=== PATIENT | male | born 1985 | race Caucasian/White ===

== ENCOUNTER 2021-08-27 12:20 | Emergency (ER) | payer MEDICAID ==
[~2021-08-27] VITALS: Ht 193 cm; Wt 114.3 kg
[2021-08-27 12:20] VITALS: BP_SYST 146
[2021-08-27] MEDS ORDERED: ALLO100T PO (12:36)
[2021-08-27] MEDS ORDERED: IBUP-1971 PO (12:36)
[2021-08-27] MEDS ORDERED: HYDROcodone/ACETAMIN 10-325 MG TAB PO ONE (13:00)
[2021-08-27] MEDS ORDERED: KETOROLAC TROMETHAMINE 60 MG/2 ML VIAL IM ONE (13:00)
[2021-08-27 13:07] VITALS: BP_SYST 146
== END 2021-08-27 13:08 | disposition home or self-care (01) ==
LOC: SED 12:20
DX: M10.9 Gout, unspecified (principal); I10 Essential (primary) hypertension
CPT/HCPCS: 96372; 99283; J1885

== ENCOUNTER 2021-09-03 07:46 | Emergency (ER) | payer MEDICAID ==
[~2021-09-03] VITALS: Ht 193 cm; Wt 115.7 kg
[~2021-09-03 07:46] MED LIST: ALLO100T PO; IBUP-1971 PO
[2021-09-03 07:59] VITALS: BP_SYST 147
--- NOTE | 2021-09-03 08:02 | NUR ---
Pt to bed #4 coming from home ambualtory with steady gait. Pt c/o right big toe pain since last week but got worse on tuesday. Pt states he came to [facility] for the same issue and was diagnosed with Gout. Pt was prescribed Ibuprofen and Allopurinal but states medication has not been working. Pt is A&Ox4. Skin intact. No chest pain and no sob. Denies n/v. VSS. Bed in lowest position.
[2021-09-03 08:07] VITALS: BP_SYST 134
--- NOTE | 2021-09-03 08:21 | NUR ---
Dr. Goins at bedside examining pt.
--- NOTE | 2021-09-03 08:28 | NUR ---
Indomethacin given PO 50mg. Pt has no c/o. X-Ray being done at bedside.
[2021-09-03] MEDS ORDERED: INDOMETHACIN 25 MG CAPSULE(INDOCIN) PO ONE (08:30)
[2021-09-03] MEDS ORDERED: INDO50CA90 PO (09:21)
[2021-09-03] MEDS ORDERED: COLC0.6C3 PO (09:21)
--- NOTE | 2021-09-03 09:23 | NUR ---
Patient given written and verbal discharge instructions and verbalizes understanding. ER MD discussed with patient the results and treatment provided. Patient in stable condition. ID arm band removed. Rx of given. Patient educated on pain management and to follow up with PMD. Pain Scale . Opportunity for questions provided and answered. Medication side effect fact sheet provided.
== END 2021-09-03 09:23 | disposition home or self-care (01) ==
LOC: SED 07:46
DX: M10.9 Gout, unspecified (principal); I10 Essential (primary) hypertension; Z79.899 Other long term (current) drug therapy
CPT/HCPCS: 99283

== ENCOUNTER 2021-09-24 07:58 | Emergency (ER) | payer MEDICAID ==
[~2021-09-24] VITALS: Ht 193 cm; Wt 115.7 kg
[~2021-09-24 07:58] MED LIST changes: +COLC0.6C3 PO; +INDO50CA90 PO
--- NOTE | 2021-09-24 07:58 | NUR ---
Patient triaged and placed in waiting room. VSS and patient appears in no acute distress at this time. Accompanied by SELF, awaiting available bed, and MD notified of need for MSE.
[2021-09-24 08:00] VITALS: BP_SYST 138
--- NOTE | 2021-09-24 08:02 | NUR ---
PT STATES HE HAS BEEN DEALING WITH GOUT LEFT GREAT TOE, TOOK COLCHICINE AND INDOMETHACIN WITH SOME RELIEF, NOW GETTING BAD AGAIN.
[2021-09-24] MEDS ORDERED: MORPHINE 4 MG INJ. 4 MG/ML VIAL IM ONE (08:30)
[2021-09-24] MEDS ORDERED: KETOROLAC TROMETHAMINE 60 MG/2 ML VIAL IM ONE (08:30)
--- NOTE | 2021-09-24 09:07 | NUR ---
BROUGHT BACK TO BED #3 AND REPORT GIVEN TO KJ
[2021-09-24] MEDS ORDERED: ALLO100T PO (09:24)
[2021-09-24] MEDS ORDERED: COLC0.6C3 PO (09:24)
[2021-09-24] MEDS ORDERED: INDO-12 PO (09:24)
--- NOTE | 2021-09-24 09:27 | NUR ---
Patient given written and verbal discharge instructions and verbalizes understanding. ER MD discussed with patient the results and treatment provided. Patient in stable condition. ID arm band removed. Rx of ALLOPURINOL, COLCHICINE, INDOMETHACIN given. Patient educated on pain management and to follow up with PMD. Pain Scale 2/10. Opportunity for questions provided and answered. Medication side effect fact sheet provided.
== END 2021-09-24 09:27 | disposition home or self-care (01) ==
LOC: SED 07:58
DX: M10.072 Idiopathic gout, left ankle and foot (principal); I10 Essential (primary) hypertension
CPT/HCPCS: 99283; J1885; 99284